=== PATIENT | male | born 1995 | race Caucasian/White ===

== ENCOUNTER 2016-08-24 13:00 | Emergency (ER) | payer OTHER ==
[~2016-08-24] VITALS: Ht 172.7 cm; Wt 61.2 kg
[2016-08-24 13:11] VITALS: BP 141/87
== END 2016-08-24 14:32 | disposition home or self-care (01) ==
LOC: ER 13:13
DX: S20.219A Contusion of unspecified front wall of thorax, initial encounter (principal); V28.4XXA Motorcycle driver injured in noncollision transport accident in traffic accident, initial encounter; Y93.89 Activity, other specified; Y99.8 Other external cause status; Y92.410 Unspecified street and highway as the place of occurrence of the external cause
CPT/HCPCS: 71101